=== PATIENT | male | born 1965 | race Caucasian/White ===

== ENCOUNTER 2017-07-27 19:39 | Observation (INO) ==
[2017-07-27] MEDS ORDERED: ASPIRIN 81 MG TAB.CHEW PO ONE (19:51)
[2017-07-27] MEDS ORDERED: ADENOSINE 3 MG/ML DISP.SYRIN IV ONE (19:54)
[2017-07-27] MEDS ORDERED: ASPIRIN 81 MG TAB.CHEW ONE (19:55)
--- NOTE | 2017-07-27 19:55 | ERNOTE ---
<Chad Flores - Last Filed: 07/27/17 19:56> CARDIAC HPI - Narrative Date of Service: 07/27/17 - General Time Seen by Provider: 07/27/17 19:47 Source: patient, EMS notes reviewed Exam Limitations: no limitations - History of Present Illness Timing/Duration: 1-3 hours, constant, getting worse Severity: moderate Location: other - no chest pain Activities at Onset: none Modifying Factors - (Improves): Reports: other - nothing Modifying Factors - (Worsens): Reports: none Nitro Today/Relief: no nitro taken today Aspirin Treatment Today: 81 mg x 1 Associated Symptoms: Present: weakness - Immun/Allergies/Home Medicatons Allergies/Adverse Reactions: Allergies Allergy/AdvReac Type Severity Reaction Status Date / Time No Known Drug Allergies Allergy Verified 07/27/17 19:51 Home Medications: Ambulatory Orders Medication Instructions Recorded Aspirin [Aspir-Low] 81 mg PO DAILY 07/27/17 Review of Systems - Review of Systems Constitutional: Present: weakness EENTM: Present: no symptoms reported Respiratory: Present: no symptoms reported Cardiology: Present: palpitations Gastrointestinal/Abdominal: Present: no symptoms reported Genitourinary: Present: no symptoms reported Musculoskeletal: Present: no symptoms reported Skin: Present: no symptoms reported Neurological: Present: no symptoms reported Endocrine: Present: no symptoms reported Hematologic/Lymphatic: Present: no symptoms reported All Other Systems: All systems neg except as marked - Narrative Narrative: cva, hypertension - Patient's Past Medical History Patient History - Medical: No pertinent hx Patient History - Cardiac/Respiratory: CVA/Stroke Patient History - Cancer: No Hx of Cancer Patient History - Surgical Procedures: No surgical history - Family History Family History:: no untoward family reactions to anesthesia, no familial bleeding tendencies, no family history of clotting disorders, no family history of premature - Social History Living Situations: alone Abuse History: No History of abuse Psych History: No pertinent hx Does anyone smoke in the home?: No Smoking Status: Former smoker Have you smoked in the past 12 months: No Do you dip or chew tobacco: No Patient requests Smoking Cessation Consult: No Initiate information on Smoking Cessation: No Alcohol Use: occasionally Drug Use: none - Immunizations Immunizations Up to Date: No Hx Pneumococcal Vaccination: No History of Influenza Vaccine: No CP Exam - Physical Exam General Appearance: Present: anxious, alert Eyes, Ears, Nose, Throat Exam: Present: normal ENT inspection, TMs normal, pharynx normal Neck: Present: non-tender Respiratory: Present: chest non-tender, lungs clear Cardiovascular/Chest: Present: tachycardia Peripheral Pulses: carotid (R): 0, carotid (L): 0, femoral (R): 0, femoral (L): 0, dorsalis-pedis (R): 0, dorsalis-pedis (L): 0, radial (R): 0, radial (L): 0 Gastrointestinal/Abdominal: Present: normal bowel sounds, no organomegaly, no pulsatile mass, non tender Extremity: Present: normal range of motion, non-tender, normal inspection, no pedal edema, no calf tenderness Neurologic: Present: manager database administration II-XII nml as tested Skin Exam: Present: normal color, warm/dry, no cyanosis Lymphatic: Present: no adenopathy ED Progress - Date and Time Seen: Date and Time: 07/27/17 19:53 adenosine 6 mg iv rate decreses to 110-[address] meek care transferred - TRANSFER OF CARE Physician Signing Out: Chad Flores Receiving Physician: Lino Meek Expected Disposition: Admit Departure - Departure Clinical Impression: Tachycardia Disposition: Still a patient Condition: Fair <Lino Meek - Last Filed: 07/27/17 21:38> CARDIAC HPI - Immun/Allergies/Home Medicatons Immunizations: IMMUNIZATION HX Immunizations Up to Date No History of Influenza Vaccine No Hx Pneumococcal Vaccination No CP Exam - Physical Exam General Appearance: Present: WD/WN, no apparent distress Neck: Present: non-tender, full range of motion, supple Respiratory: Present: chest non-tender, lungs clear Cardiovascular/Chest: Present: no murmur, tachycardia Extremity: Present: normal inspection, no pedal edema Neurologic: Present: alert, normal mood/affect Skin Exam: Present: normal color, no cyanosis ED Progress - PROGRESS/REASSESSMENT Progress Note-Subjective: 07/27/17 21:38 Spoke with Ash EUBANKS hospitalist about obs admit. She agrees with obs. - VITAL SIGNS Patient's Vital Signs:: I have reviewed the patient's vital signs. Vital Signs - Last Taken Temp 36.8 C 07/27/17 19:41 Pulse 105 H 07/27/17 20:00 Resp 15 06/07/18 20:00 BP 130/80 07/27/17 20:00 Pulse Ox 95 07/27/17 20:00 - RESULTS AND ORDERS Patient's Lab Results:: I have reviewed the patient's lab results. Results and Orders: Abnormal/Pending Laboratory Last 24 HRS 07/27/17 07/27/17 Unknown 19:55 Immature Gran % (Auto) 1.00 H Immature Gran # (Auto) 0.09 H Eosinophils % 3.3 H Basophils % 1.1 H Sodium 130 L Chloride 96 L Carbon Dioxide 20.5 L Anion Gap 17.1 H BUN/Creatinine Ratio 7.3 L Random Glucose 234 H Calcium Adj for Albumin 8.1 L 07/27/17 20:53 Laboratory Tests 07/27/17 07/27/17 07/27/17 19:55 Unknown Unknown WBC 9.2 Hgb 15.6 Hct 44.4 Plt Count 216 PT 10.0 INR (Anticoag Therapy) 1.00 PTT ([place]) 28.2 Sodium 130 L Potassium 3.6 Chloride 96 L Carbon Dioxide 20.5 L Anion Gap 17.1 H BUN 7 Creatinine 0.96 Random Glucose 234 H Calcium 8.1 Total Bilirubin 0.4 AST 28 ALT 39 Alkaline Phosphatase 65 Troponin I 0.074 Total Protein 6.8 Albumin 3.6 - EKG EKG #1 EKG: supravent. tachycardia - rate 223 EKG Read: Interp. by me EKG #2 EKG: other - Sinus tachycardia rate 119 EKG Read: Interp. by me - X-Ray X-Ray #1 XRAY: chest X-Ray Interpretation: Interp. by me X-Ray Comments: No infiltrate or effusion, cardiac size normal. no pneumothorax
[2017-07-27] MEDS ORDERED: NORMAL SALINE 1,000 ML IV ONE (19:59)
[2017-07-27 20:01] LABS: Hematocrit 44.4 % (42.0-52.0); Hemoglobin 15.6 gm/dL (13.5-18.0); Mean Cell Volume 87.1 fl (78-100); Mean Corpuscular Hemoglobin 30.6 pg (27-31); Mean Corpuscular Hgb Conc 35.1 g/dl (32-36); Mean Platelet Volume 9.8 fl (8-11.3); Neutrophil # 5.2 K/mm3 (1.3-6.0); Neutrophil % 56.4 % (42-75.0); Platelet Count 216 K/mm3 (150-450); White Blood Count 9.2 K/mm3 (4.0-10.5)
[2017-07-27 20:15] LABS: Partial Thrombolplastin Time 28.2 Seconds (24-32)
[2017-07-27 20:17] LABS: Albumin * 3.6 gm/dl (3.4-5.0); Anion Gap 17.1 mmol/L (6.8-13.8); BUN/Creatinine Ratio 7.3 (9.0-21.6); Bilirubin, Total 0.4 mg/dL (0.0-1.1); Ca. Corrected For Albumin 8.1 mg/dL (8.4-10.2); Calcium * 8.1 mg/dL (7.9-10.9); Carbon Dioxide 20.5 mmol/L (24-32.6); Potassium 3.6 mmol/L (3.4-4.6); Total Protein 6.8 gm/dL (6.2-8.2)
[2017-07-27 20:21] LABS: Troponin I 0.074 ng/ml (0.00-0.10)
[2017-07-27 23:43] LABS: Hemoglobin A1C 6.4 % (4.00-6.0)
[2017-07-27 23:59] LABS: TSH * 3.863 uIU/mL (0.358-3.74)
--- NOTE | 2017-07-27 23:59 | HP ---
Chief Complaint - Chief Complaint Date of Service: 07/27/17 Time of Service: 23:00 Chief Complaint: Palpitation, chest pressure History of Present Illness: 52 years old male adm to the hospital with reports of his heart racing that began at 5:30pm. PMH significant for HTN and CVA (5-6yrs ago etiology was unknown). Pt stated he had supper and was getting out the shower when he felt chest pressure, accompanied by shortness of breath and pain down his left arm. He denies nausea, vomiting, dizziness, diaphoresis or syncope.Pt stated he lay down hoping the discomfort would go away but it intensified. He called EMS and was brought to [facility] ER. In ER seen on EKG- SVT with St depression HR 223,he was given Adenosine 6mg IV x1 with improvement to sinus tachycardia. he continue to denies chest discomfort. Upon arrival to floor , pt in NSR. pt stated he his a very heavy drinker, he have 4-6 beers daily and smokes 1.5 pack of cigarettes daily.Will trend tropo and repeat EKG.Plan of care discussed with pt he verbalized understanding and agrees. - Patient's Past Medical History Patient History - Medical: No pertinent hx Patient History - Cardiac/Respiratory: CVA/Stroke, Hypertension Patient History - Cancer: No Hx of Cancer Patient History - Surgical Procedures: No surgical history Patient History - Other: None - Family History Family History:: no untoward family reactions to anesthesia, no familial bleeding tendencies, no family history of clotting disorders, no family history of premature - Social History Living Situations: alone Abuse History: No History of abuse Psych History: No pertinent hx Does anyone smoke in the home?: Yes Smoking Status: Current every day smoker Cigarettes Packs Per Day: 1.5 Have you smoked in the past 12 months: Yes Do you dip or chew tobacco: No Patient requests Smoking Cessation Consult: No Initiate information on Smoking Cessation: Yes Alcohol Use: heavy Drug Use: none - Immunizations Immunizations Up to Date: No Hx Pneumococcal Vaccination: No History of Influenza Vaccine: No Review Of Systems (GEN) - Review of Systems Generalized/Overall Review: Present: No Symptoms Reported EENTM: Present: No Symptoms Reported, Throat Swelling Cardiac: Present: No Symptoms Reported Abdominal: Present: No Symptoms Reported Genitourinary: Present: No Symptoms Reported Musculoskeletal: Present: No Symptoms Reported Neurological: Present: No Symptoms Reported Skin: Present: No Symptoms Reported Endocrine: Present: No Symptoms Reported Allergies/Adverse Reactions: Allergies Allergy/AdvReac Type Severity Reaction Status Date / Time No Known Drug Allergies Allergy Verified 07/27/17 19:51 Home Medications: HOME MEDICATIONS Aspirin [Aspir-Low] 81 mg PO DAILY 07/27/17 [Last Taken 07/27/17] Exam - Exam Vital Signs: Vital Signs - Last Taken Temp 36.4 C L 07/27/17 22:14 Pulse 92 07/27/17 22:14 Resp 18 07/27/17 22:14 BP 152/82 07/27/17 22:14 Pulse Ox 96 07/27/17 22:14 Constitutional: Present: Alert, Oriented x3, Cooperative, Well developed, No distress, Young, Looks Older than stated age ENT Exam: Present: hearing grossly normal Eye Exam: bilateral eye: normal inspection Neck: Present: non-tender, full range of motion Back Exam: Present: normal inspection, no CVA tenderness Breasts: Present: Exam deferred Respiratory: Present: chest non-tender, no respiratory distress, decreased breath sounds Cardiovascular/Chest: Present: normal peripheral pulses, regular rate, rhythm, no chest tenderness, no edema, no gallop Peripheral Pulses: dorsalis-pedis (R): 3+, dorsalis-pedis (L): 3+ Abdomen: Present: Normal bowel sounds, soft, nontender, nondistended, no rebound tenderness /Rectal: Present: Exam deferred Extremity: Present: normal range of motion, non-tender, normal inspection, no pedal edema, no calf tenderness Skin Exam: Present: normal color, warm/dry, no cyanosis Neurologic: Present: normal mood/affect, oriented x 3 Appearance: Present: appropriate appearance, appropriate insight, no memory impairment Eye contact: Present: cooperative, good eye contact Thoughts: Present: normal thought pattern Diagnostic Studies: Abnormal Lab Results 07/27/17 Range/Units Unknown Sodium 130 L (132-142) mmol/L Chloride 96 L (97-106) mmol/L Carbon Dioxide 20.5 L (24-32.6) mmol/L Anion Gap 17.1 H (6.8-13.8) mmol/L BUN/Creatinine Ratio 7.3 L (9.0-21.6) Random Glucose 234 H (70-110) mg/dL Calcium Adj for Albumin 8.1 L (8.4-10.2) mg/dL Laboratory Results WBC 9.2 K/mm3 (4.0-10.5) 07/27/17 19:55 RBC 5.10 M/mm3 (4.7-6.0) 07/27/17 19:55 Hgb 15.6 gm/dL (13.5-18.0) 07/27/17 19:55 Hct 44.4 % (42.0-52.0) 07/27/17 19:55 MCV 87.1 fl (78-100) 07/27/17 19:55 MCH 30.6 pg (27-31) 07/27/17 19:55 MCHC 35.1 g/dl (32-36) 07/27/17 19:55 RDW 13.0 % (11.5-14.0) 07/27/17 19:55 Plt Count 216 K/mm3 (150-450) 07/27/17 19:55 MPV 9.8 fl (8-11.3) 07/27/17 19:55 Immature Gran % (Auto) 1.00 % (0.001-0.429) H 07/27/17 19:55 Immature Gran # (Auto) 0.09 K/mm3 (0.000-0.0310) H 07/27/17 19:55 Neutrophils % 56.4 % (42-75.0) 07/27/17 19:55 Lymphocytes % 31.4 % (20-51) 07/27/17 19:55 Monocytes % 6.8 % (0.0-9) 07/27/17 19:55 Eosinophils % 3.3 % (0.0-3.0) H 07/27/17 19:55 Basophils % 1.1 % (0.0-1.0) H 07/27/17 19:55 Nucleated RBC % 0.0 k/mm3 (0-1) 07/27/17 19:55 Neutrophils # 5.2 K/mm3 (1.3-6.0) 07/27/17 19:55 Lymphocytes # 2.88 k/mm3 (1.5-3.5) 07/27/17 19:55 Monocytes # 0.6 k/mm3 (0.0-1.0) 07/27/17 19:55 Eosinophils # 0.3 k/mm3 (0.0-0.7) 07/27/17 19:55 Absolute Basophils 0.1 k/mm3 (0.0-0.1) 07/27/17 19:55 PT 10.0 Seconds (9.0-11.0) 07/27/17 Unknown INR (Anticoag Therapy) 1.00 INR (0.90-1.10) 07/27/17 Unknown PTT ([place]) 28.2 Seconds (24-32) 07/27/17 Unknown Sodium 130 mmol/L (132-142) L 07/27/17 Unknown Plasma Sodium 132 mmol/L (130-142) 07/27/17 Unknown Potassium 3.6 mmol/L (3.4-4.6) 07/27/17 Unknown Chloride 96 mmol/L (97-106) L 07/27/17 Unknown Carbon Dioxide 20.5 mmol/L (24-32.6) L 07/27/17 Unknown Anion Gap 17.1 mmol/L (6.8-13.8) H 07/27/17 Unknown BUN 7 mg/dL (6-23) 07/27/17 Unknown Creatinine 0.96 mg/dL (0.4-1.4) 07/27/17 Unknown Est GFR (Non-Af Amer) 87 mL/min (60-130) 07/27/17 Unknown BUN/Creatinine Ratio 7.3 (9.0-21.6) L 07/27/17 Unknown Random Glucose 234 mg/dL (70-110) H 07/27/17 Unknown Calcium 8.1 mg/dL (7.9-10.9) 07/27/17 Unknown Calcium Adj for Albumin 8.1 mg/dL (8.4-10.2) L 07/27/17 Unknown Total Bilirubin 0.4 mg/dL (0.0-1.1) 07/27/17 Unknown AST 28 U/L (0-48) 07/27/17 Unknown ALT 39 U/L (19-67) 07/27/17 Unknown Alkaline Phosphatase 65 U/L (50-170) 07/27/17 Unknown Troponin I 0.074 ng/ml (0.00-0.10) 07/27/17 Unknown Total Protein 6.8 gm/dL (6.2-8.2) 07/27/17 Unknown Albumin 3.6 gm/dl (3.4-5.0) 07/27/17 Unknown CXR: No infiltrate or effusion, cardiac size normal. no pneumothorax Assessment/Plan - Assessment/Plan (1) SVT (supraventricular tachycardia) Assessment: SVT possible due to heavy alcohol consumption, excessive smoking or COPD Pt stated he drink heavy having 4-6 or more beers daily. He smoke 1.5 pk of cigarettes daily. Lipid panel, TSH, A1C pending Problem: Acute (2) CVA (cerebral vascular accident) Problem: Chronic (3) Hypertension Problem: Chronic (4) Alcohol abuse Assessment: CIWA protocol Pt stated his last drink was today before coming to the hospital Problem: Chronic (5) Smoker Assessment: Nicotin Patch Smoking cessation edu Problem: Chronic (6) Hyponatremia Assessment: On adm Na+ 130, IVF given. Monitor CMP in the morning Problem: Acute
[2017-07-28 02:40] LABS: Chol/HDL Risk Ratio 5.9 mg/dL (3.3-5.0)
[2017-07-28] MEDS ORDERED: HEPARIN SODIUM,PORCINE/D5W 25,000 UNITS/500 ML BAG IV PRN (03:05)
[2017-07-28] MEDS ORDERED: METOPROLOL TARTRATE 25 MG TABLET PO ONE (03:05)
[2017-07-28] MEDS ORDERED: ROSUVASTATIN CALCIUM 20 MG TABLET PO ONE (03:15)
--- NOTE | 2017-07-28 03:17 | PN ---
Progess Note - Interim Date: 07/28/17 Time: 03:13 Narrative: 07/28/17 03:14 Second troponin 3.345, repeated EKG-NSR, pt denies chest discomfort. A1C 6.4 and TSH 3.863. Spoke with Dr Costa Hospitalist accepting transfer. spoke with recycling operations manager trainmaster who instructed to give metoprolol and Lipitor. No heparin or plavix, likely demand ischemia. pt can have an echo done at [facility] if abnormal anticipate cardiac cath. Dr Silva is aware of plan and agreeable to pt transfer.
--- NOTE | 2017-07-28 03:20 | DS ---
Transfer Discharge Summary - Diagnosis(s)/Problems (1) SVT (supraventricular tachycardia) Problem: Acute (2) CVA (cerebral vascular accident) Problem: Chronic (3) Hypertension Problem: Chronic (4) Alcohol abuse Problem: Chronic (5) Smoker Problem: Chronic (6) Hyponatremia Problem: Acute (7) Diabetes Problem: Acute (8) Hypothyroidism Problem: Acute (9) Tachycardia Problem: Acute - Course Description of Stay: Date of admission 07/27/2017 Date of transfer 07/28/2017 Transfer summary Mr Brown a 52 years old male adm to the hospital with reports of his heart racing that began at 5:30pm. PMH significant for HTN and CVA (5-6yrs ago etiology was unknown). Pt stated he had supper and was getting out the shower when he felt chest pressure, accompanied by shortness of breath and pain down his left arm. He denies nausea, vomiting, dizziness, diaphoresis or syncope.Pt stated he lay down hoping the discomfort would go away but it intensified. He called EMS and was brought to [facility] ER. In ER seen on EKG- SVT with St depression HR 223,he was given Adenosine 6mg IV x1 with improvement to sinus tachycardia. He continue to denies chest discomfort Upon arrival to floor.Pt been in NSR since adm. pt stated he his a very heavy drinker, he have 4-6 beers daily and smokes 1.5 pack of cigarettes daily.During this adm he had repeated troponin 3.345, A1C 6.4 and TSH 3.863. He will be transfer to [facility] He will get lipitor 40mg x1, Metoprolol 25mg x1. NO heparin or plavix per Dr Watson maintenance analyst [facility]. Will obtain Echo if abnormal will get cardiac cath and its possible just demand ischemia.Plan of care discussed with pt he verbalized understanding and agrees. Procedures Performed: none - Results and Findings Results and Findings: Laboratory Results - last 24 hr 07/27/17 07/27/17 07/28/17 Unknown Unknown 02:10 PT 10.0 INR (Anticoag Therapy) 1.00 PTT ([place]) 28.2 Sodium 130 L Plasma Sodium 132 Potassium 3.6 Chloride 96 L Carbon Dioxide 20.5 L Anion Gap 17.1 H BUN 7 Creatinine 0.96 Est GFR (Non-Af Amer) 87 BUN/Creatinine Ratio 7.3 L Random Glucose 234 H Calcium 8.1 Calcium Adj for Albumin 8.1 L Total Bilirubin 0.4 AST 28 ALT 39 Alkaline Phosphatase 65 Troponin I 0.074 Total Protein 6.8 Albumin 3.6 Triglycerides 274 H Cholesterol 189 LDL Cholesterol 102 VLDL Cholesterol 55 H HDL Cholesterol 32 L Cholesterol/HDL Ratio 5.9 H 07/28/17 02:10 PT INR (Anticoag Therapy) PTT ([place]) Sodium Plasma Sodium Potassium Chloride Carbon Dioxide Anion Gap BUN Creatinine Est GFR (Non-Af Amer) BUN/Creatinine Ratio Random Glucose Calcium Calcium Adj for Albumin Total Bilirubin AST ALT Alkaline Phosphatase Troponin I 3.345 H* Total Protein Albumin Triglycerides Cholesterol LDL Cholesterol VLDL Cholesterol HDL Cholesterol Cholesterol/HDL Ratio Laboratory Tests 07/27/17 07/27/17 07/27/17 19:10 19:10 19:55 WBC 9.2 RBC 5.10 Hgb 15.6 Hct 44.4 MCV 87.1 MCH 30.6 MCHC 35.1 RDW 13.0 Plt Count 216 MPV 9.8 PT INR (Anticoag Therapy) PTT ([place]) Sodium Plasma Sodium Potassium Chloride Carbon Dioxide Anion Gap BUN Creatinine Est GFR (Non-Af Amer) BUN/Creatinine Ratio Random Glucose Mean Blood Glucose 127 Hemoglobin A1c 6.4 H Calcium Adj for Albumin Troponin I TSH 3.863 H 07/27/17 07/27/17 07/28/17 Unknown Unknown 02:10 WBC RBC Hgb Hct MCV MCH MCHC RDW Plt Count MPV PT 10.0 INR (Anticoag Therapy) 1.00 PTT ([place]) 28.2 Sodium 130 L Plasma Sodium 132 Potassium 3.6 Chloride 96 L Carbon Dioxide 20.5 L Anion Gap 17.1 H BUN 7 Creatinine 0.96 Est GFR (Non-Af Amer) 87 BUN/Creatinine Ratio 7.3 L Random Glucose 234 H Mean Blood Glucose Hemoglobin A1c Calcium Adj for Albumin 8.1 L Troponin I 0.074 3.345 H* TSH - Medications Medications: Active Medications Discontinued Medications Adenosine (Adenocard) 6 mg IV ONCE ONE Stop: 07/27/17 19:55 Last Admin: 07/27/17 19:43 Dose: 6 mg Aspirin (Aspirin Chewable) 324 mg PO ONCE ONE Stop: 07/27/17 19:52 Last Admin: 07/27/17 19:58 Dose: 324 mg Sodium Chloride (Sodium Chloride 0.9%) 1,000 mls @ 999 mls/hr IV .Q1H1M ONE Stop: 07/27/17 20:59 Last Infusion: 07/27/17 21:02 Dose: Infused - Disposition Disposition: Short Term Hospital Inpatient Condition: Fair Discharge Date: 07/28/17 Discharge Time: 03:20
[2017-07-28] MEDS ORDERED: ROSUVASTATIN CALCIUM 10 MG TABLET ONE (03:30)
[2017-07-28 03:35] VITALS: BP 154/83
[2017-07-28] MEDS ORDERED: ASPIRIN 81 MG TABLET.DR PO SCH (09:00)
== END 2017-07-28 03:38 | disposition short-term general hospital (02) ==
LOC: ER 19:39 → MS 21:45
PROVIDERS: ADMIT Nurse Practitioner; ATTEND Internal Medicine
DX: Z68.32 Body mass index [BMI] 32.0-32.9, adult; E87.1 Hypo-osmolality and hyponatremia; I47.1 Supraventricular tachycardia; Z86.73 Personal history of transient ischemic attack (TIA), and cerebral infarction without residual deficits; E11.9 Type 2 diabetes mellitus without complications; I10 Essential (primary) hypertension; E03.9 Hypothyroidism, unspecified; F17.210 Nicotine dependence, cigarettes, uncomplicated; F10.10 Alcohol abuse, uncomplicated
CPT/HCPCS: 36415; 71010; 71045; 80053; 80061; 83036; 83519; 83880; 84443; 84484; 85025; 85610; 85730; 93005; 96361; 96374; 99285; G0378